=== PATIENT | female | born 1955 | race Caucasian/White ===

== ENCOUNTER 2017-01-16 09:06 | Emergency (ER) | payer OTHER ==
[2017-01-16 09:15] VITALS: BMI 43.4
--- NOTE | 2017-01-16 09:49 | C.PDOC ---
History Of Present Illness 61 yr old female presents to the ER with complaints of sudden new onset of right shoulder pain since yesterday. Patient states the pain is localized and worse with movement. Reports she has tried Aleve at 7AM with no relief. Patient denies trauma, injury, back pain, neck pain, weakness or numbness. NEW ONSET R SHOULDER PAIN SINCE YEST. DENIES TRAUMA, INJURY. LOCALIZED R SHOULDER WORSE W MOVEMENT. NO RELIEF W ALEVE @ 0700. NO OTHER ASSOC SX. DOES FREQ REPETITIVE MOTION @ WORK EXAM MOD DIST NONTOXIC EXT R SHOULDER NO DEFORM, POOR EFFORT. PAIN W ALL ROM, PT REFUSING FULL ROM. SKIN INTACT NEURO INTACT Time Seen by Provider: 01/16/17 09:36 Chief Complaint (Nursing): Upper Extremity Problem/Injury History Per: Patient History/Exam Limitations: no limitations Onset/Duration Of Symptoms: Sudden Onset (Yesterday ) Current Symptoms Are (Timing): Still Present Past Medical History Reviewed: Historical Data, Nursing Documentation, Vital Signs Vital Signs: Last Vital Signs Temp 98.4 F 01/16/17 09:31 Pulse 67 01/16/17 09:31 Resp 18 01/16/17 09:31 BP 182/82 H 01/16/17 09:31 Pulse Ox 100 01/16/17 10:30 - Medical History PMH: Gastritis, HTN, Hypercholesterolemia Family History: States: No Known Family Hx - Social History Hx Tobacco Use: No Hx Alcohol Use: No Hx Substance Use: No - Immunization History Hx Tetanus Toxoid Vaccination: No Hx Influenza Vaccination: No Hx Pneumococcal Vaccination: No Review Of Systems Except As Marked, All Systems Reviewed And Found Negative. Musculoskeletal: Positive for: Shoulder Pain (Right shoulder ). Negative for: Neck Pain, Back Pain Neurological: Negative for: Weakness, Numbness Physical Exam - Physical Exam Appears: Non-toxic, In Acute Distress (Moderate ) Skin: Warm, Dry, No Rash Head: Atraumatic, Normacephalic Neck: Normal, Normal ROM, Supple Extremity: No Deformity, Other (Right Shoulder - Poor effort. Pain with all ROM. Patient is refusing full ROM. Skin intact. ) Neurological/Psych: Oriented x3, Normal Speech, Normal Sensation Gait: Steady ED Course And Treatment O2 Sat by Pulse Oximetry: 100 Reevaluation Time: 10:56 Reassessment Condition: Improved Medical Decision Making Medical Decision Making: PLAN: * EKG * Dilaudid IM * Reglan IM Disposition Counseled Patient/Family Regarding: Diagnosis, Need For Followup, Rx Given - Disposition Referrals: [facility] [Outside] [facility] [Outside] Disposition: HOME/ ROUTINE Disposition Time: 10:57 Condition: IMPROVED Additional Instructions: REMOVER EL REMIENDO [address] LA APLICACIN. Prescriptions: Cyclobenzaprine [Flexeril] 10 mg PO TID #15 tab Ibuprofen [Motrin] 600 mg PO Q6 #30 tab Instructions: Rotator Cuff Tendinitis (ED) Forms: Work Excuse Print Language: NICARAGUAN - Clinical Impression Clinical Impression: Shoulder strain - Scribe Statement The provider has reviewed the documentation as recorded by the Elderibselena Wynne Provider Attestation: All medical record entries made by the Elderibselena were at my direction and personally dictated by me. I have reviewed the chart and agree that the record accurately reflects my personal performance of the history, physical exam, medical decision making, and the department course for this patient. I have also personally directed, reviewed, and agree with the discharge instructions and disposition.
[2017-01-16] MEDS ORDERED: HYDROmorphone 0.5 mg/0.5 ml ISec IM STA (09:51)
[2017-01-16 10:45] VITALS: TEMP 98
[2017-01-16] MEDS ORDERED: Lidocaine 5% Patch TD STA (10:56)
[2017-01-16] MEDS ORDERED: Lidocaine 5% Patch TD ONE (11:02)
[2017-01-16 11:15] VITALS: BP 139/75; PULSE 68; RESP 18; O2SAT 98
--- NOTE | 2017-01-20 12:47 | CARD ---
APPROVED REPORT EKG Measurement Heart [id number] <Conclusion> Normal sinus rhythm Normal ECG
== END 2017-01-16 11:25 | disposition home or self-care (01) ==
LOC: C.ER 09:06
DX: S46.911A Strain of unspecified muscle, fascia and tendon at shoulder and upper arm level, right arm, initial encounter (principal); X58.XXXA Exposure to other specified factors, initial encounter; Y92.9 Unspecified place or not applicable
CPT/HCPCS: 93005; 96372; 99284; J1170; J2765

== ENCOUNTER 2018-07-17 12:48 | Emergency (ER) | payer OTHER ==
[2018-07-17 12:49] VITALS: BMI 43.4
[2018-07-17 13:08] VITALS: PULSE 65; O2SAT 99
[2018-07-17] MEDS ORDERED: Oxycodone/Acetaminophen 5/325 mg Tab PO STA (14:52)
[2018-07-17] MEDS ORDERED: Lidocaine 5% Patch TD STA (14:52)
[2018-07-17] MEDS ORDERED: Oxycodone/Acetaminophen 5/325 mg Tab ONE (15:08)
[2018-07-17] MEDS ORDERED: Lidocaine 5% Patch TD ONE (15:09)
--- NOTE | 2018-07-17 15:44 | RAD ---
Date of service: 07/17/2018 PROCEDURE: Radiographs of the Lumbar Spine. HISTORY: right sciatica COMPARISON: No prior. FINDINGS: BONES: Normal alignment. No listhesis. No fracture. DISC SPACES: Unremarkable. OTHER FINDINGS: None. IMPRESSION: Unremarkable radiographs of the lumbar spine.
[2018-07-17 15:52] VITALS: BP 114/65; RESP 20; TEMP 98.3
--- NOTE | 2018-07-17 15:52 | C.PDOC ---
History Of Present Illness 62 y/o female presents to ED complaining of lower back pain for the past week, radiating to her right thigh. Patient denies any trauma, bladder/bowel dysfunction, numbness, tingling, weakness, or fever. Time Seen by Provider: 07/17/18 13:57 Chief Complaint (Nursing): Lower Extremity Problem/Injury History Per: Patient History/Exam Limitations: no limitations Onset/Duration Of Symptoms: Days Current Symptoms Are (Timing): Still Present Past Medical History Reviewed: Historical Data, Nursing Documentation, Vital Signs Vital Signs: Last Vital Signs Temp 98.8 F 07/17/18 13:06 Pulse 65 07/17/18 13:06 Resp 18 07/17/18 13:06 BP 141/84 07/17/18 13:06 Pulse Ox 99 07/17/18 13:06 - Medical History PMH: Gastritis, HTN, Hypercholesterolemia Family History: States: No Known Family Hx - Social History Hx Tobacco Use: No Hx Alcohol Use: No Hx Substance Use: No - Immunization History Hx Tetanus Toxoid Vaccination: No Hx Influenza Vaccination: No Hx Pneumococcal Vaccination: No Review Of Systems Except As Marked, All Systems Reviewed And Found Negative. Constitutional: Negative for: Fever Cardiovascular: Negative for: Chest Pain Respiratory: Negative for: Shortness of Breath Gastrointestinal: Negative for: Nausea, Vomiting, Diarrhea Genitourinary: Negative for: Dysuria, Incontinence Musculoskeletal: Positive for: Back Pain (lower back pain radiating to R thigh) Skin: Negative for: Rash Neurological: Negative for: Weakness, Numbness Physical Exam - Physical Exam Appears: Non-toxic, No Acute Distress Skin: Warm, Dry Head: Atraumatic, Normacephalic Eye(s): bilateral: Normal Inspection Oral Mucosa: Moist Neck: Supple Cardiovascular: Rhythm Regular, No Murmur Respiratory: Normal Breath Sounds, No Rales, No Rhonchi, No Wheezing Gastrointestinal/Abdominal: Soft, No Tenderness Extremity: Tenderness (to lower back, right buttock, and right posterior thigh) Extremity: Bilateral: Normal Color And Temperature, Normal ROM Neurological/Psych: Oriented x3, Normal Speech, Normal Motor, Normal Sensation, Normal Reflexes Gait: Steady ED Course And Treatment O2 Sat by Pulse Oximetry: 99 (RA) Pulse Ox Interpretation: Normal - Other Rad Lumbar Spine X-Ray X-Ray: Read By Radiologist Interpretation: FINDINGS: BONES: Normal alignment. No listhesis. No fracture. DISC SPACES: Unremarkable. OTHER FINDINGS: None. IMPRESSION: Unremarkable radiographs of the lumbar spine. Progress Note: Lumbar Spine X-Ray ordered. Lidoderm, percocet, toradol, and va lium administered. On re-evaluation patient feels better, ambulatory, no neuro deficit. Patient is stable to be d/c home with aPNJ follow up. Disposition - Disposition Disposition: HOME/ ROUTINE Disposition Time: 15:51 Condition: IMPROVED Additional Instructions: Follow up with PMD within 1-2 days. Return to ED if feel worse. Prescriptions: Lidocaine 5% [Lidoderm] 1 patch TP DAILY #30 patch Ibuprofen [Motrin Tab] 600 mg PO Q8 #30 tab traMADol [Ultram] 50 mg PO Q6 #20 tab diaZEpam [Valium] 2 mg PO TID #15 tab Instructions: Sciatica Forms: [employer] (Telugu) Print Language: GEORGIAN - Clinical Impression Clinical Impression: Sciatica - PA / RADIUS CORNER MACHINE OPERATOR / Resident Statement MD/DO has reviewed & agrees with the documentation as recorded. - Scribe Statement The provider has reviewed the documentation as recorded by the Scribe Dorcas Mendieta All medical record entries made by the Scribselena were at my direction and personally dictated by me. I have reviewed the chart and agree that the record accurately reflects my personal performance of the history, physical exam, medical decision making, and the department course for this patient. I have also personally directed, reviewed, and agree with the discharge instructions and disposition.
== END 2018-07-17 16:02 | disposition home or self-care (01) ==
LOC: C.ER 12:48
DX: M54.31 Sciatica, right side (principal)
CPT/HCPCS: 72100; 96372; 99284; J1885

== ENCOUNTER 2018-11-11 10:12 | Day surgery (SDC) | payer OTHER ==
[2018-11-11 10:34] VITALS: BMI 42.2
[2018-11-11 10:40] VITALS: BP 137/71; PULSE 68; RESP 18; TEMP 98.6; O2SAT 97
--- NOTE | 2018-11-11 10:44 | CP.SDSHP ---
Same Day Surgery H & P - History Proposed Procedure: endoscopy Pre-Op Diagnosis: epig pain, gastritis - Previous Medical/Surgical History Cardiac: Hypertension - Allergies Allergies: Allergies mushroom Allergy (Verified 11/11/18 10:40) VOMITING - Physical Exam Vital Signs: Vital Signs 11/11/18 10:34 Temperature 98.6 F Pulse Rate 68 Respiratory 18 Rate Blood Pressure 137/71 O2 Sat by Pulse 97 Oximetry Mental Status: Alert & Oriented x3 Neuro: WNL Heart: WNL Lungs: WNL GI: WNL - {Optional Preform as Required} Abdomen: WNL - Impression Impression: diverticulosis Pt. Evaluated Today:Candidate for Anesthesia & Procedure: Yes - Date & Time Date: 11/11/18 Time: 10:44 Short Stay Discharge - Short Stay Discharge Admitting Diagnosis/Reason for Visit: GASTRIC ULCER Disposition: HOME/ ROUTINE
--- NOTE | 2018-11-11 12:23 | CP.PCM.PN ---
Subjective - Date & Time of Evaluation Date of Evaluation: 11/11/18 Time of Evaluation: 10:45 - Subjective Subjective: 63 yof with h/o HTN, HLD, Morbid,Obesity was scheduled today for an elective EGD to follow up on GERD and h/o peptic ulcer. Patient had multiple admissions to ED due to chest pains starting in 2012. The admission from 09/20/16 describes a stabbing mid sternal chest pain knife like 04/02, radiating to left chest, pt had negative troponins, was advised to be admitted for observation and 2 more sets of troponins but left the hospital instead. Patient asked extensively about her history via paper wrapping machine operator, [employer], logistics intern number [id number], patient is having intermittent chest pains, has never seen back order clerk or had other studies done other then EKG. Patient just started going to some clinic and seeing a PMD. It was felt that these chest pains could as well be from cardiac origin. Since this was an elective procedure it was mutually decided with Dr Faye for patient to see a back order clerk and obtain a cardiac clearance prior to the procedure. All this was communicated to the patient via paper wrapping machine operator, patient agreed to the plan. Dr Faye gave the pt a Rx to thewith above recommendations. patient Objective - Vital Signs/Intake and Output Vital Signs (last 24 hours): Temp Pulse Resp BP Pulse Ox 98.6 F 68 18 137/71 97 11/11/18 10:34 11/11/18 10:34 11/11/18 10:34 11/11/18 10:34 11/11/18 10:34
== END 2018-11-11 11:20 | disposition home or self-care (01) ==
LOC: C.ENDO 10:12
PROVIDERS: ATTEND Internal Medicine Gastroenterology
DX: K25.9 Gastric ulcer, unspecified as acute or chronic, without hemorrhage or perforation (principal); I10 Essential (primary) hypertension; K21.9 Gastro-esophageal reflux disease without esophagitis; K29.70 Gastritis, unspecified, without bleeding; K57.90 Diverticulosis of intestine, part unspecified, without perforation or abscess without bleeding; E78.5 Hyperlipidemia, unspecified; E66.01 Morbid (severe) obesity due to excess calories; Z53.8 Procedure and treatment not carried out for other reasons
CPT/HCPCS: 43235; P000X